=== PATIENT | male | born 1990 | race Caucasian/White ===

== ENCOUNTER 2024-05-27 10:55 | Outpatient (REF) | payer OTHER, SELFPAY ==
[2024-05-27 13:20] LABS: MANUAL DIFF FLAG NO
[2024-05-27 13:40] LABS: Appearance Urine Clear; Color Urine Dark Yellow; Glucose Urine UA Negative (Negative); Leukocyte Esterase Urine Negative (Negative); Nitrite Urine Negative (Negative); Urine Blood Negative (Negative); Urine Ketones Negative (Negative); Urine Protein Negative (Neg-Trace)
[2024-05-27 13:41] LABS: Estimated Average Glucose 97 mg/dL; Hemoglobin A1C 142.6265 umol/L
[2024-05-27 14:01] LABS: Basophils Absolute Auto 0.1 X10*3/uL (0.0-0.2); Basophils Percent Auto 1.1 % (0-2); Eosinophils Absolute Auto 0.1 X10*3/uL (0.0-0.4); Eosinophils Percent Auto 1.8 % (0-4); Hematocrit 46.7 % (42.0-52.0); Hemoglobin 17.5 g/dl (14.0-18.0); Imm Gran Abs Auto 0.02 X10*3/uL (0.00-0.03); Imm Gran Pct Auto 0.3 % (0.0-0.4); Lymphocytes Absolute Auto 1.8 X10*3/uL (1.2-4.9); Lymphocytes Percent Auto 28.4 % (20-40); Mean Corpuscular HGB Conc 37.5 g/dl (31.0-36.0); Mean Corpuscular Hemoglobin 34.2 pg (27.0-33.0); Mean Corpuscular Volume 91.4 fL (80.0-98.0); Mean Platelet Volume 10.5 fL (9.4-12.4); Monocytes Absolute Auto 0.6 X10*3/uL (0.1-1.2); Neutrophils Absolute Auto 3.6 x10*3/uL (2.0-8.3); Neutrophils Percent Auto 58.4 % (45-73); Platelet Count 174 X10*3/uL (160-400); Red Blood Count 5.11 X10*6/uL (4.60-5.80); Red Cell Distribution Width 12.4 % (11.0-16.0); White Blood Count 6.2 X10*3/uL (4.8-10.8)
[2024-05-27 14:04] LABS: Erythrocyte Sedimentation Rate 2 MM/HR (0-15)
[2024-05-27 14:24] LABS: Alanine Aminotransferase 284 U/L (0-40); Albumin Level 5.1 g/dL (3.5-5.0); Alkaline Phosphatase 98 U/L (39-117); Amylase 72 U/L (28-100); Aspartate Amino Transferase 314 U/L (5-37); Blood Urea Nitrogen 11 mg/dL (9-16); Calcium 10.1 mg/dL (8.4-10.2); Estimated Glomerular Filt Rate > 60; Glucose Random 99 mg/dL (60-115); Iron 84 mcg/dL (45-160); Lipase 52 U/L (8-78); Percent Iron Saturation 28 % (15-50); Total Iron Binding Capacity 302 mcg/dL (228-428); Total Protein 7.9 g/dL (6.5-8.0); Unsaturated Iron Binding 218 ug/dL
[2024-05-27 14:39] LABS: Anion Gap 15 (12-20); Carbon Dioxide 24 mmol/L (22-29); Chloride 102 mmol/L (96-108); Gamma Glutamyl Transpeptidase 590 U/L (11-51); Potassium 3.4 mmol/L (3.3-5.1); Sodium 138 mmol/L (135-145)
[2024-05-27 14:45] LABS: Thyroid Stimulating Hormone 1.81 uIU/mL (0.32-4.0)
[2024-05-27 14:49] LABS: Vitamin B12 963 pg/mL (200-900)
[2024-05-27 14:57] LABS: Insulin 12 uU/mL (2-29)
[2024-05-27 15:05] LABS: Cortisol Random 12.4 ug/dL
[2024-05-27 15:22] LABS: Ferritin 3439 ng/mL (20-250)
[2024-05-28 21:04] LABS: Thyroid Peroxidase Antibodies 1 IU/mL (<9)
[2024-06-01 13:54] LABS: VITAMIN D (1,25 OH) D3 93 pg/mL; Vit D (1,25-Dihydroxy) Total 93 pg/mL (18-72); Vitamin D (1,25 OH) D2 <8 pg/mL
[2024-06-02 17:14] LABS: Testosterone, Free 51.8 pg/mL (35.0-155.0); Testosterone, Total 472 ng/dL (250-1100)
== END 2024-05-27 10:56 | disposition home or self-care (01) ==
LOC: HO.MANLDS 10:55
PROVIDERS: Visit Provider Physician Assistant
DX: R11.14 Bilious vomiting (principal); F10.10 Alcohol abuse, uncomplicated; E16.1 Other hypoglycemia; R61 Generalized hyperhidrosis; R63.5 Abnormal weight gain; R53.83 Other fatigue
CPT/HCPCS: 36415; 80053; 81003; 82150; 82533; 82607; 82652; 82728; 82977; 83036; 83525; 83540; 83690; 84402; 84403; 84436; 84443; 85025; 85652; 86376

== ENCOUNTER 2024-05-29 07:46 | Outpatient (REF) | payer OTHER, SELFPAY ==
[2024-06-03 23:13] LABS: Adrenocorticotropic Hormone 27 pg/mL (6-50)
== END 2024-05-29 07:47 | disposition home or self-care (01) ==
LOC: HO.MANLDS 07:46
PROVIDERS: Visit Provider Physician Assistant
DX: R61 Generalized hyperhidrosis (principal)
CPT/HCPCS: 36415; 82024